=== PATIENT | male | born 2000 | race Caucasian/White ===

== ENCOUNTER 2021-01-30 12:33 | Emergency (ER) | payer SELFPAY ==
[2021-01-30 13:31] LABS: HEMOGLOBIN 15.5 gm/dl (14.0-17.5); RED BLOOD COUNT 4.77 M/UL (4.20-5.50); WHITE BLOOD COUNT 8.9 K/UL (4.5-11.0)
[2021-01-30 13:57] LABS: BUN/CREATININE RATIO 19 (0-10)
== END 2021-01-30 20:00 | disposition home or self-care (01) ==
LOC: ER1 12:33
PROVIDERS: Physician Assistant Medical
DX: R07.89 Other chest pain (principal)
CPT/HCPCS: 71045; 80053; 80307; 81001; 82550; 82553; 83874; 84484; 85025; 85379; 93005; 99285; Q9967